=== PATIENT | female | born 1940 | race Two or more races ===

== ENCOUNTER 2022-09-28 18:45 | Inpatient (IN) | payer OTHER ==
[~2022-09-28] VITALS: Ht 160 cm; Wt 99.3 kg
[2022-09-28] MEDS ORDERED: cloNIDine HCL 0.1 MG TAB PO ONE (19:00)
[2022-09-28] MEDS ORDERED: ONDANSETRON ODT 4 MG TAB PO ONE (19:00)
[2022-09-28] MEDS ORDERED: DEXTROSE 50% SYRINGE 50 ML IV ONE (19:34)
[2022-09-28] MEDS ORDERED: DEXTROSE 10% 1,000 ML IV ONE (19:45)
[2022-09-28 19:49] LABS: Hematocrit 32.9 % (36.0-46.0); Hemoglobin 10.7 g/dL (12.2-16.2); Mean Corpuscular Hemoglobin 30.1 pg (28.0-32.0); Mean Corpuscular Hgb Conc. 32.4 g/dL (32.0-36.0); Mean Corpuscular Volume 92.9 fL (80.0-100.0); Red Blood Cells 3.54 10^6/uL (4.0-5.20); Red Cell Distribution Width 14.3 % (11.8-14.3); White Blood Cell 11.8 10^3/uL (4.4-10.8)
[2022-09-28 20:13] LABS: BUN/Creatinine Ratio 14.2; Calcium 7.8 mg/dL (8.5-10.1); Potassium 4.3 mmol/L (3.5-5.1)
[2022-09-28 20:16] LABS: Bilirubin, Total 0.3 mg/dL (0.2-1.0); Total Protein 6.4 g/dL (6.4-8.2)
[2022-09-28 20:20] LABS: Band Neutrophils % (manual) 0; Basophils % (manual) 0 (0.0-2.0); Blast Cells 0; Eosinophils % (manual) 0 (0-7); Metamyelocytes % 0; Myelocytes % 0; Promyelocytes % 0; Reactive Lymphocytes 0
[2022-09-28 20:27] LABS: INR 1.03 (0.9-1.15); Partial Thromboplastin Time 27.5 sec (24.6-33.4)
[2022-09-28 20:39] LABS: Lymphocytes % (manual) 14 (10.0-50.0); Monocytes % (manual) 4 (0-12)
[2022-09-28] MEDS ORDERED: SODIUM CHLORIDE 0.9% 1,000 ML IV SCH (21:30)
[2022-09-28] MEDS ORDERED: DEXTROSE (50%) 50ML SYRG IV ONE (21:30)
[2022-09-28] MEDS ORDERED: ACETAMINOPHEN 325 MG TAB PO PRN (21:30)
[2022-09-28] MEDS ORDERED: SOD CHL 0.45% 1,000 ML IV SCH (21:45)
[2022-09-28] MEDS ORDERED: DEXTROSE (50%) 50ML SYRG IV PRN ×2 (21:45→22:00)
[2022-09-28] MEDS ORDERED: hydrALAZINE HCL 20 MG/ML VL IV PRN (21:45)
[2022-09-28] MEDS ORDERED: PANTOPRAZOLE 40 MG/10 ML VIAL INJ IV ONE (21:45)
[2022-09-28] MEDS ORDERED: ACCU-CHEK COMFORT CURVE STRIP VI SCH (22:00)
[2022-09-28] MEDS ORDERED: InsuLIN REG 1unit/0.01ml Soln (100units/ml) SC SCH (22:00)
[2022-09-28] MEDS ORDERED: DEXTROSE 10% 1,000 ML IV SCH (22:00)
[2022-09-28] MEDS ORDERED: cefTRIAXone 1GM/50ML D5W 50 ML IV ONE (22:00)
[2022-09-28 22:29] LABS: % Iron Saturation 21.6 % (15-50); Cholesterol 118 mg/dL (< 200)
[2022-09-28 22:32] LABS: HDL Cholesterol 74 mg/dL (40-59); LDL Cholesterol 43 mg/dL (< 100); Triglycerides 73 mg/dL (< 150)
[2022-09-29] MEDS: ACCU-CHEK COMFORT CURVE STRIP VI SCH ×6 (01:23→20:19)
[2022-09-29] MEDS: InsuLIN REG 1unit/0.01ml Soln (100units/ml) SC SCH ×6 (04:00→20:51)
[2022-09-29 06:45] LABS: Basophils # (auto) 0.1 10 ^3/uL (0-0.2); Basophils % (auto) 0.6 % (0.0-2.0); Eosinophils # (auto) 0.2 10 ^3/uL (0-0.8); Hematocrit 28.2 % (36.0-46.0); Hemoglobin 9.4 g/dL (12.2-16.2); Lymphocytes # (auto) 2.2 10 ^3/uL (0.4-5.4); Lymphocytes % (auto) 24.7 % (10.0-50.0); Mean Corpuscular Hemoglobin 30.6 pg (28.0-32.0); Mean Corpuscular Hgb Conc. 33.2 g/dL (32.0-36.0); Mean Corpuscular Volume 92.1 fL (80.0-100.0); Monocytes % (auto) 10.7 % (0.0-12.0); Neutrophils # (auto) 5.6 10 ^3/uL (1.6-8.6); Red Blood Cells 3.06 10^6/uL (4.0-5.20); Red Cell Distribution Width 13.9 % (11.8-14.3)
[2022-09-29 07:00] LABS: Albumin 2.5 g/dL (3.4-5.0); BUN/Creatinine Ratio 12.7; Calcium 7.2 mg/dL (8.5-10.1); Potassium 4.5 mmol/L (3.5-5.1)
[2022-09-29 07:03] LABS: Bilirubin, Total 0.3 mg/dL (0.2-1.0)
[2022-09-29] MEDS ORDERED: cefTRIAXone 1GM/50ML D5W 50 ML IV SCH (09:00)
[2022-09-29] MEDS: ENOXAPARIN SOD 30 MG/0.3 ML SYRINGE SC SCH (09:32)
[2022-09-29] MEDS ORDERED: PANTOPRAZOLE 40 MG/10 ML VIAL INJ IV SCH (10:00)
[2022-09-29 11:00] VITALS: BP 110/62
[2022-09-29] MEDS ORDERED: ATOR20TA50 PO (12:28)
[2022-09-29] MEDS ORDERED: HYDR10TA26 PO (12:28)
[2022-09-29] MEDS ORDERED: INSUINJ2 SC ×2 (12:28)
[2022-09-29] MEDS ORDERED: GAB100C PO (12:28)
[2022-09-29] MEDS ORDERED: FUR20T PO (12:28)
[2022-09-29] MEDS ORDERED: LOSA-69 PO (12:28)
[2022-09-29 13:50] VITALS: BP 152/72
[2022-09-29] MEDS: SODIUM CHLORIDE 0.9% 1,000 ML IV SCH (14:00)
[2022-09-29 15:08] LABS: Magnesium 1.9 mg/dL (1.6-2.6); Phosphorus 4.8 mg/dL (2.5-4.90)
[2022-09-29 16:28] VITALS: BP 110/62
[2022-09-29 22:00] VITALS: BP 134/72
[2022-09-30] MEDS: ACCU-CHEK COMFORT CURVE STRIP VI SCH ×5 (00:38→18:23)
[2022-09-30] MEDS: InsuLIN REG 1unit/0.01ml Soln (100units/ml) SC SCH ×5 (04:00→18:23)
[2022-09-30] MEDS: SODIUM CHLORIDE 0.9% 1,000 ML IV SCH (04:44)
[2022-09-30 05:00] VITALS: BP 180/82
[2022-09-30] MEDS: ENOXAPARIN SOD 30 MG/0.3 ML SYRINGE SC SCH (08:16)
[2022-09-30 09:00] VITALS: BP 182/72
[2022-09-30] MEDS ORDERED: LOSARTAN POTASSIUM 50 MG TAB PO SCH (10:00)
[2022-09-30 10:46] LABS: Calcium 7.4 mg/dL (8.5-10.1); Potassium 4.6 mmol/L (3.5-5.1)
[2022-09-30 13:00] VITALS: BP 187/83
[2022-09-30 14:22] VITALS: BP 182/72
[2022-09-30 14:51] VITALS: BP 182/72
== END 2022-09-30 17:20 | disposition home health service (06) | DRG 637 ==
LOC: EDBD 18:45 → ER 18:45 → OVERFLOW 21:32 → EAST 09-29 11:51
PROVIDERS: ADMIT Nurse Practitioner Family; ATTEND Student in an Organized Health Care Education/Training Program
DX: E11.69 Type 2 diabetes mellitus with other specified complication (principal); G93.41 Metabolic encephalopathy; E46 Unspecified protein-calorie malnutrition; E87.0 Hyperosmolality and hypernatremia; E11.649 Type 2 diabetes mellitus with hypoglycemia without coma; D64.9 Anemia, unspecified; D72.829 Elevated white blood cell count, unspecified; E66.01 Morbid (severe) obesity due to excess calories; E83.51 Hypocalcemia; Z68.38 Body mass index [BMI] 38.0-38.9, adult; E11.22 Type 2 diabetes mellitus with diabetic chronic kidney disease; R29.6 Repeated falls; Z60.2 Problems related to living alone; I12.9 Hypertensive chronic kidney disease with stage 1 through stage 4 chronic kidney disease, or unspecified chronic kidney disease; N18.9 Chronic kidney disease, unspecified; Z79.4 Long term (current) use of insulin; Z63.4 Disappearance and death of family member
CPT/HCPCS: 36415; 70450; 71045; 80048; 80053; 80061; 82962; 83036; 83540; 83550; 83605; 83735; 83880; 84100; 84443; 84484; 85007; 85025; 85027; 85610; 85730; 87040; 87426; 96361; 96365; 96366; 96375; 96376; 97163; 99291; 99292; C9113; G0378; J0696; J1815; Q0162

== ENCOUNTER 2023-11-16 16:26 | Emergency (ER) | payer OTHER ==
[~2023-11-16] VITALS: Ht 154.9 cm; Wt 78.0 kg
[~2023-11-16 16:26] MED LIST: ATOR20TA50 PO; FUR20T PO; GAB100C PO; HYDR-4227 PO; INSUINJ2 SC; LOSA50TA46 PO
[2023-11-16 17:39] LABS: Basophils # (auto) 0.1 10 ^3/uL (0-0.2); Basophils % (auto) 0.7 % (0.0-2.0); Eosinophils # (auto) 0.2 10 ^3/uL (0-0.8); Eosinophils % (auto) 1.6 % (0.0-7.0); Hemoglobin 11.8 g/dL (12.2-16.2); Lymphocytes # (auto) 1.6 10 ^3/uL (0.4-5.4); Lymphocytes % (auto) 14.9 % (10.0-50.0); Mean Corpuscular Hgb Conc. 31.9 g/dL (32.0-36.0); Monocytes # (auto) 1.3 10 ^3/uL (0-1.3); Monocytes % (auto) 11.9 % (0.0-12.0); Neutrophils # (auto) 7.6 10 ^3/uL (1.6-8.6); Neutrophils % (auto) 70.9 % (37.0-80.0); Red Blood Cells 3.93 10^6/uL (4.0-5.20); Red Cell Distribution Width 13.5 % (11.8-14.3); White Blood Cell 10.8 10^3/uL (4.4-10.8)
[2023-11-16 17:57] LABS: Albumin 2.9 g/dL (3.2-4.8); Alkaline Phosphatase 106 U/L (46-116); Anion Gap 9 (5-15); Aspartate Aminotransferase 33 U/L (13-40); BUN/Creatinine Ratio 7.8 (10.0-20.0); Bilirubin, Total 0.2 mg/dL (0.2-1.0); Blood Urea Nitrogen 34 mg/dL (9-23); Carbon Dioxide 25 mmol/L (20-30); Chloride 102 mmol/L (98-107); Glucose 111 mg/dL (74-106); Potassium 3.7 mmol/L (3.5-5.1); Sodium 136 mmol/L (136-145)
[2023-11-16 18:01] LABS: Alanine Aminotransferase < 9 U/L (7-40)
[2023-11-16 18:41] LABS: Erythrocyte Sedimentation Rate 70 mm/hr (0-20)
[2023-11-16 18:52] LABS: INR 1.09 (0.9-1.15); Partial Thromboplastin Time 36.6 SEC (24.5-34.5); Prothrombin Time 11.4 sec (9.3-11.8)
[2023-11-16 19:25] VITALS: PULSE 75; RESP 15; O2SAT 95
[2023-11-16 20:22] VITALS: BP 150/76; PULSE 75; RESP 16; O2SAT 98
== END 2023-11-16 20:22 | disposition home or self-care (01) ==
LOC: EDBD 16:26 → ER 16:26
DX: S80.01XA Contusion of right knee, initial encounter (principal); I12.9 Hypertensive chronic kidney disease with stage 1 through stage 4 chronic kidney disease, or unspecified chronic kidney disease; E11.22 Type 2 diabetes mellitus with diabetic chronic kidney disease; N18.9 Chronic kidney disease, unspecified; E78.5 Hyperlipidemia, unspecified; Z90.710 Acquired absence of both cervix and uterus; Z79.4 Long term (current) use of insulin; Z79.899 Other long term (current) drug therapy; X58.XXXA Exposure to other specified factors, initial encounter; Y93.89 Activity, other specified; Y92.89 Other specified places as the place of occurrence of the external cause; Y99.8 Other external cause status
CPT/HCPCS: 36415; 73560; 80053; 83605; 85025; 85610; 85652; 85730; 86141

== ENCOUNTER 2023-12-03 11:30 | Inpatient (IN) | payer OTHER ==
[~2023-12-03] VITALS: Ht 157.5 cm; Wt 68.0 kg
[2023-12-03] VITALS (7 sets, daily range): BP systolic 62–106; BP diastolic 25–62; PULSE 63–82; RESP 10–24; TEMP 97–97.5; O2SAT 99
[2023-12-03 12:04] LABS: Eosinophils # (auto) 0 10 ^3/uL (0-0.8); Monocytes # (auto) 1.3 10 ^3/uL (0-1.3); Monocytes % (auto) 5.3 % (0.0-12.0); Red Cell Distribution Width 14.5 % (11.8-14.3)
[2023-12-03 12:06] LABS: Basophils # (auto) 0.1 10 ^3/uL (0-0.2); Basophils % (auto) 0.4 % (0.0-2.0); Hematocrit 17.9 % (36.0-46.0); Lymphocytes # (auto) 1.4 10 ^3/uL (0.4-5.4); Lymphocytes % (auto) 5.8 % (10.0-50.0); Mean Corpuscular Hemoglobin 29.4 pg (28.0-32.0); Mean Corpuscular Hgb Conc. 30.3 g/dL (32.0-36.0); Mean Corpuscular Volume 96.8 fL (80.0-100.0); Neutrophils # (auto) 21.9 10 ^3/uL (1.6-8.6); Neutrophils % (auto) 88.5 % (37.0-80.0); Nucleated Red Blood Cells % 0.1 %; Red Blood Cells 1.85 10^6/uL (4.0-5.20); White Blood Cell 24.8 10^3/uL (4.4-10.8)
[2023-12-03 12:12] LABS: Chloride 100 mmol/L (98-107); Potassium 4.9 mmol/L (3.5-5.1); Sodium 132 mmol/L (136-145)
[2023-12-03 12:13] LABS: Anion Gap 13 (5-15); Carbon Dioxide 19 mmol/L (20-30)
[2023-12-03 12:18] LABS: BUN/Creatinine Ratio 10.9 (10.0-20.0); Blood Urea Nitrogen 62 mg/dL (9-23); Glucose 122 mg/dL (74-106)
[2023-12-03 12:22] LABS: Hemoglobin 5.4 g/dL (12.2-16.2)
[2023-12-03 12:32] LABS: Calcium 5.8 mg/dL (8.7-10.4)
[2023-12-03] MEDS: SODIUM CHLORIDE 0.9% 1,000 ML IV ONE (15:12)
[2023-12-03] MEDS: NOREPINEPHRINE 8 MG/250ML KIT 250 ML IV SCH ×2 (15:12→21:04)
[2023-12-03] MEDS: NOREPINEPHRINE 8 MG/250ML KIT 250 ML IV ONE (15:12)
[2023-12-03] MEDS ORDERED: DEXTROSE (50%) 50ML SYRG IV PRN (18:45)
[2023-12-03] MEDS ORDERED: ONDANSETRON HCL 4 MG/2 ML VIAL IV PRN (18:45)
[2023-12-03] MEDS ORDERED: MORPHINE SULFATE INJ 2 MG/ml SYRG IV PRN (18:45)
[2023-12-03] MEDS ORDERED: DOCUSATE SOD 100 MG CAP PO PRN (18:45)
[2023-12-03] MEDS ORDERED: VANCOMYCIN PER PHARMACY 0 MG IV SCH (18:45)
[2023-12-03] MEDS: VASOPRESSIN 20 UNIT/ML ONE (19:36)
[2023-12-03] MEDS: VASOPRESSIN 20 UNITS in SODIUM CHL 0.9% 99 ML IV SCH (19:58)
[2023-12-03] MEDS: CEFEPIME 2GM/50ML NS 50 ML IV ONE (20:00)
[2023-12-03 20:03] LABS: Alanine Aminotransferase 13 U/L (7-40); Albumin 1.9 g/dL (3.2-4.8); Alkaline Phosphatase 148 U/L (46-116); Anion Gap 14 (5-15); Aspartate Aminotransferase 56 U/L (13-40); BUN/Creatinine Ratio 12.9 (10.0-20.0); Carbon Dioxide 19 mmol/L (20-30); Chloride 101 mmol/L (98-107); Glucose 118 mg/dL (74-106); Potassium 5.3 mmol/L (3.5-5.1); Sodium 134 mmol/L (136-145)
[2023-12-03 20:04] LABS: Bilirubin, Total 0.6 mg/dL (0.2-1.0); Blood Urea Nitrogen 72 mg/dL (9-23); Phosphorus 7.1 mg/dL (2.4-5.1); Total Protein 4.2 g/dL (5.7-8.2)
[2023-12-03 20:10] LABS: Calcium 5.8 mg/dL (8.5-10.1)
[2023-12-03] MEDS: CALCIUM GLUC 1,000mg/50ml-NS 50 ML IV ONE (20:18)
[2023-12-03 20:21] LABS: Magnesium 1.8 mg/dL (1.6-2.6)
[2023-12-03] MEDS: VANCOMYCIN 1GM/200ML 200 ML IV ONE (21:33)
[2023-12-03] MEDS: SODIUM CHLORIDE 0.9% 1,000 ML IV SCH (21:42)
[2023-12-03] MEDS: ACCU-CHEK COMFORT CURVE STRIP VI SCH (23:46)
[2023-12-03] MEDS: InsuLIN REG 1unit/0.01ml Soln (100units/ml) SC SCH (23:46)
[2023-12-04 01:05] VITALS: BP 103/41; PULSE 72; RESP 11; TEMP 97.3
[2023-12-04 01:22] VITALS: BP 94/49; PULSE 67; RESP 17; TEMP 97.3
[2023-12-04 01:37] VITALS: BP 92/45; PULSE 71; RESP 24; TEMP 97.4
[2023-12-04 03:26] VITALS: BP 100/44; PULSE 71; RESP 25; TEMP 97.4
[2023-12-04] MEDS: ACETAMINOPHEN 325 MG TAB PO ONE (03:30)
[2023-12-04] MEDS: ONDANSETRON HCL 4 MG/2 ML VIAL IV PRN (03:33)
[2023-12-04] MEDS: MORPHINE SULFATE INJ 2 MG/ml SYRG IV PRN (03:33)
[2023-12-04 05:02] LABS: Hematocrit 23.8 % (36.0-46.0); Hemoglobin 7.7 g/dL (12.2-16.2); Mean Corpuscular Hgb Conc. 32.3 g/dL (32.0-36.0); Mean Corpuscular Volume 89.8 fL (80.0-100.0); Red Blood Cells 2.65 10^6/uL (4.0-5.20); Red Cell Distribution Width 15.2 % (11.8-14.3)
[2023-12-04 05:13] LABS: INR 1.22 (0.9-1.15); Partial Thromboplastin Time 54.8 SEC (24.5-34.5); Prothrombin Time 12.6 sec (9.3-11.8)
[2023-12-04 05:17] LABS: Alanine Aminotransferase 17 U/L (7-40); Albumin 1.9 g/dL (3.2-4.8); Alkaline Phosphatase 138 U/L (46-116); Anion Gap 17 (5-15); Aspartate Aminotransferase 62 U/L (13-40); BUN/Creatinine Ratio 16.5 (10.0-20.0); Carbon Dioxide 16 mmol/L (20-30); Chloride 100 mmol/L (98-107); Glucose 109 mg/dL (74-106); Potassium 5.1 mmol/L (3.5-5.1); Sodium 133 mmol/L (136-145); Total Protein 3.9 g/dL (5.7-8.2)
[2023-12-04 05:32] LABS: Blood Urea Nitrogen 92 mg/dL (9-23); Calcium 5.6 mg/dL (8.5-10.1)
[2023-12-04 05:33] LABS: White Blood Cell 39.4 10^3/uL (4.4-10.8)
[2023-12-04 05:34] LABS: Basophils % (manual) 0 (0.0-2.0); Blast Cells 0; Eosinophils % (manual) 0 (0-7); Metamyelocytes % 0; Myelocytes % 0; Promyelocytes % 0; Reactive Lymphocytes 0
[2023-12-04] MEDS: CALCIUM GLUC 1,000mg/50ml-NS 50 ML IV ONE (06:33)
[2023-12-04 08:07] VITALS: RESP 16; O2SAT 99
[2023-12-04 08:53] LABS: Band Neutrophils % (manual) 12; Lymphocytes % (manual) 7 (10.0-50.0); Monocytes % (manual) 4 (0-12); Platelet Estimate Adequate; Tear Drop Cells FEW
[2023-12-04] MEDS ORDERED: VANCOMYCIN PER PHARMACY 0 MG IV SCH (11:30)
[2023-12-04] MEDS: VANCOMYCIN 500 MG in D5W 5% 100 ML IV ONE (14:05)
[2023-12-04] MEDS: SODIUM CHLORIDE 0.9% 1,000 ML IV SCH (14:25)
[2023-12-04] MEDS: PANTOPRAZOLE 40 MG/10 ML VIAL INJ IV ONE (14:29)
[2023-12-04] MEDS ORDERED: diphenhdrAMINE HCL 50 MG/1 ML VL IM ONE (16:15)
[2023-12-04] MEDS: CEFEPIME HCL-DEXTROSE 50 ML IV SCH (17:19)
[2023-12-04] MEDS ORDERED: AMLO1TAB22 PO (17:35)
[2023-12-04] MEDS ORDERED: PANT40TA2 PO (17:35)
[2023-12-04] MEDS ORDERED: CARV6.2551 PO (17:35)
[2023-12-04] MEDS ORDERED: SUCR1TAB PO (17:35)
[2023-12-04 20:18] VITALS: PULSE 70; RESP 20; O2SAT 95
[2023-12-05] VITALS (33 sets, daily range): BP systolic 82–132; BP diastolic 36–54; PULSE 60–79; RESP 12–21; TEMP 97.9–98.7; O2SAT 94–99
[2023-12-05 06:32] LABS: Mean Corpuscular Hemoglobin 28.7 pg (28.0-32.0); Mean Corpuscular Hgb Conc. 30.8 g/dL (32.0-36.0); Mean Corpuscular Volume 93.2 fL (80.0-100.0)
[2023-12-05 06:38] LABS: Hematocrit 20.6 % (36.0-46.0); Red Blood Cells 2.21 10^6/uL (4.0-5.20); Red Cell Distribution Width 15.9 % (11.8-14.3)
[2023-12-05 06:41] LABS: Alanine Aminotransferase 24 U/L (7-40); Albumin 1.8 g/dL (3.2-4.8); Alkaline Phosphatase 171 U/L (46-116); Aspartate Aminotransferase 82 U/L (13-40); BUN/Creatinine Ratio 16.8 (10.0-20.0); Bilirubin, Total 0.7 mg/dL (0.2-1.0); Chloride 103 mmol/L (98-107); Glucose 141 mg/dL (74-106); Potassium 4.3 mmol/L (3.5-5.1); Sodium 135 mmol/L (136-145); Total Protein 3.7 g/dL (5.7-8.2)
[2023-12-05 06:42] LABS: Hemoglobin 6.3 g/dL (12.2-16.2)
[2023-12-05 06:43] LABS: Band Neutrophils % (manual) 0; Basophils % (manual) 0 (0.0-2.0); Blast Cells 0; Eosinophils % (manual) 0 (0-7); Metamyelocytes % 0; Myelocytes % 0; Promyelocytes % 0; Reactive Lymphocytes 0
[2023-12-05 06:45] LABS: Carbon Dioxide 13 mmol/L (20-30)
[2023-12-05 06:53] LABS: Blood Urea Nitrogen 95 mg/dL (9-23)
[2023-12-05 06:54] LABS: Calcium 5.6 mg/dL (8.5-10.1)
[2023-12-05] MEDS: SODIUM CHL 0.9% 1000 ML BAG XX ONE (07:00)
[2023-12-05 07:14] LABS: Anion Gap 19 (5-15)
[2023-12-05 09:26] LABS: Lymphocytes % (manual) 5 (10.0-50.0); Monocytes % (manual) 2 (0-12); Platelet Estimate Adequate
[2023-12-05] MEDS: PANTOPRAZOLE 40 MG/10 ML VIAL INJ IV SCH (10:51)
[2023-12-05] MEDS: MEROPENEM 1GM IVPB 50 ML IV ONE (13:29)
[2023-12-05] MEDS: LIDOCAINE 1% (LOCAL ANESTH.) PF 5ml SDV ID ONE (14:58)
[2023-12-05] MEDS: LIDOCAINE 2%HCL (LOCAL ANESTH.) INJ 20ML MDV ONE (17:11)
[2023-12-05] MEDS: fentaNYL CITRATE 100 MCG/2 ML VL ONE (17:22)
[2023-12-05] MEDS: HEPARIN SODIUM (PORCINE) 5000 UNITS/ML 1ML VIAL ONE (17:23)
[2023-12-05] MEDS: MIDAZOLAM HCL 2MG/2ML 2ml VIAL (1mg/ml) ONE (17:23)
[2023-12-05] MEDS: NOREPINEPHRINE 8 MG/250ML KIT 250 ML IV ONE (18:16)
[2023-12-05] MEDS: MEROPENEM 1GM IVPB 50 ML IV SCH (22:48)
[2023-12-05] MEDS: SODIUM CHLOR 0.9% PF (SALINE LOCK) 10ML VIAL/SYR IV SCH (22:53)
[2023-12-06] VITALS (88 sets, daily range): BP systolic 90–160; BP diastolic 33–75; PULSE 60–133; RESP 10–27; TEMP 97.9–98.4; O2SAT 95–100
[2023-12-06 04:20] LABS: Hematocrit 20.8 % (36.0-46.0); Mean Corpuscular Hemoglobin 29.9 pg (28.0-32.0)
[2023-12-06 04:21] LABS: Mean Corpuscular Hgb Conc. 31.9 g/dL (32.0-36.0); Mean Corpuscular Volume 93.7 fL (80.0-100.0); Red Blood Cells 2.22 10^6/uL (4.0-5.20); Red Cell Distribution Width 15.1 % (11.8-14.3)
[2023-12-06 04:51] LABS: Chloride 99 mmol/L (98-107); Potassium 3.6 mmol/L (3.5-5.1)
[2023-12-06 04:52] LABS: Anion Gap 5 (5-15); Carbon Dioxide 16 mmol/L (20-30); Hemoglobin 6.6 g/dL (12.2-16.2); White Blood Cell 40.2 10^3/uL (4.4-10.8)
[2023-12-06 04:53] LABS: Basophils % (manual) 0 (0.0-2.0); Blast Cells 0; Eosinophils % (manual) 0 (0-7); Metamyelocytes % 0; Myelocytes % 0; Promyelocytes % 0; Reactive Lymphocytes 0
[2023-12-06 04:57] LABS: Glucose 199 mg/dL (74-106)
[2023-12-06 05:04] LABS: Sodium 120 mmol/L (136-145)
[2023-12-06 05:05] LABS: Calcium 5.2 mg/dL (8.5-10.1)
[2023-12-06 05:31] LABS: BUN/Creatinine Ratio 14.3 (10.0-20.0); Blood Urea Nitrogen 77 mg/dL (9-23)
[2023-12-06 06:12] LABS: Band Neutrophils % (manual) 6; Lymphocytes % (manual) 2 (10.0-50.0); Monocytes % (manual) 4 (0-12); Platelet Estimate Adequate
[2023-12-06 06:13] LABS: Anisocytosis Slight
[2023-12-06 06:44] LABS: Urine Bacteria FEW /hpf (None Seen); Urine Blood 1+ /uL (Negative); Urine Budding Yeast FEW /hpf (None Seen); Urine Clarity CLOUDY (Clear); Urine Color Yellow (Yellow); Urine Protein, UAD 2+ (Negative); Urine Specific Gravity 1.016 (1.001-1.035); Urine Urobilinogen Normal (Negative); Urine WBC 120 /hpf (0 - 5); Urine pH 5.5 (5.0-8.0)
[2023-12-06] MEDS: SODIUM CHL 0.9% 1000 ML BAG XX ONE (08:00)
[2023-12-06] MEDS: ALBUMIN 25% 100 ML IV PRN (08:15)
[2023-12-06 13:11] LABS: Hemoglobin 8.7 g/dL (12.2-16.2)
[2023-12-06] MEDS ORDERED: KETOROLAC TROMETH 30 MG/ML 1ML VIAL IV PRN (14:30)
[2023-12-06] MEDS: VANCOMYCIN 1GM/200ML 200 ML IV ONE (14:55)
[2023-12-06 15:10] LABS: Chloride 108 mmol/L (98-107); Potassium 3.6 mmol/L (3.5-5.1); Sodium 140 mmol/L (136-145)
[2023-12-06 15:11] LABS: Anion Gap 10 (5-15); Calcium 6.1 mg/dL (8.5-10.1); Carbon Dioxide 22 mmol/L (20-30)
[2023-12-06 15:16] LABS: Glucose 130 mg/dL (74-106)
[2023-12-06 15:17] LABS: BUN/Creatinine Ratio 13.1 (10.0-20.0); Blood Urea Nitrogen 40 mg/dL (9-23)
[2023-12-07] VITALS (11 sets, daily range): BP systolic 106–132; BP diastolic 48–64; PULSE 82–135; RESP 15–21; TEMP 98.5–99.2; O2SAT 96–98
[2023-12-07 04:08] LABS: Hematocrit 23.6 % (36.0-46.0); Hemoglobin 7.8 g/dL (12.2-16.2); Mean Corpuscular Hemoglobin 29.8 pg (28.0-32.0); Mean Corpuscular Hgb Conc. 33.1 g/dL (32.0-36.0); Mean Corpuscular Volume 90.1 fL (80.0-100.0); Red Blood Cells 2.62 10^6/uL (4.0-5.20)
[2023-12-07 04:37] LABS: White Blood Cell 32.5 10^3/uL (4.4-10.8)
[2023-12-07 04:38] LABS: Basophils % (manual) 0 (0.0-2.0); Blast Cells 0; Eosinophils % (manual) 0 (0-7); Metamyelocytes % 0; Myelocytes % 0; Promyelocytes % 0; Reactive Lymphocytes 0
[2023-12-07 04:57] LABS: Chloride 107 mmol/L (98-107); Potassium 3.8 mmol/L (3.5-5.1); Sodium 138 mmol/L (136-145)
[2023-12-07 04:58] LABS: Anion Gap 11 (5-15); Carbon Dioxide 20 mmol/L (20-30)
[2023-12-07 05:04] LABS: Blood Urea Nitrogen 46 mg/dL (9-23); Glucose 116 mg/dL (74-106)
[2023-12-07 05:12] LABS: Calcium 5.7 mg/dL (8.7-10.4)
[2023-12-07 06:32] LABS: Band Neutrophils % (manual) 5; Lymphocytes % (manual) 6 (10.0-50.0); Monocytes % (manual) 4 (0-12)
[2023-12-07 06:34] LABS: Anisocytosis Slight; Platelet Estimate Adequate
== END 2023-12-07 10:05 | disposition left against medical advice (07) | DRG 871 ==
LOC: EDBD 11:30 → EDUNIT# 11:30 → ER 11:30 → TELE 19:28 → ICU WEST 12-05 17:56 → TELE-WESTW 12-07 09:34
PROVIDERS: ADMIT Nurse Practitioner Family; ATTEND Internal Medicine Pulmonary Disease
PROC: 30233N1 Transfusion of Nonautologous Red Blood Cells into Peripheral Vein, Percutaneous Approach (ICD-10-PCS; 2023-12-03)
PROC: 30233K1 Transfusion of Nonautologous Frozen Plasma into Peripheral Vein, Percutaneous Approach (ICD-10-PCS; principal; 2023-12-04)
PROC: 02HV33Z Insertion of Infusion Device into Superior Vena Cava, Percutaneous Approach (ICD-10-PCS; 2023-12-05)
PROC: 5A1D70Z Performance of Urinary Filtration, Intermittent, Less than 6 Hours Per Day (ICD-10-PCS; 2023-12-06)
DX: A41.9 Sepsis, unspecified organism (principal); E43 Unspecified severe protein-calorie malnutrition; N18.6 End stage renal disease; R65.21 Severe sepsis with septic shock; J96.01 Acute respiratory failure with hypoxia; D62 Acute posthemorrhagic anemia; I12.0 Hypertensive chronic kidney disease with stage 5 chronic kidney disease or end stage renal disease; C41.9 Malignant neoplasm of bone and articular cartilage, unspecified; N39.0 Urinary tract infection, site not specified; E83.51 Hypocalcemia; E11.22 Type 2 diabetes mellitus with diabetic chronic kidney disease; I95.9 Hypotension, unspecified; E88.09 Other disorders of plasma-protein metabolism, not elsewhere classified; R68.0 Hypothermia, not associated with low environmental temperature; E87.5 Hyperkalemia; E78.5 Hyperlipidemia, unspecified; Z96.619 Presence of unspecified artificial shoulder joint; Z90.710 Acquired absence of both cervix and uterus; Z85.830 Personal history of malignant neoplasm of bone; Z85.831 Personal history of malignant neoplasm of soft tissue; Z83.3 Family history of diabetes mellitus; Z99.2 Dependence on renal dialysis; Z79.4 Long term (current) use of insulin; Z79.899 Other long term (current) drug therapy; Z68.27 Body mass index [BMI] 27.0-27.9, adult
CPT/HCPCS: 36415; 36569; 71045; 76937; 80048; 80053; 80202; 81001; 82962; 83605; 83735; 84100; 85007; 85014; 85018; 85025; 85027; 85610; 85730; 86850; 86900; 86901; 86920; 87040; 87077; 87081; 87086; 87186; 87205; 90935; 93005; 96365; 99152; C1894; C9113; G0378; J0692; J1642; J1815; J2185; J2250; J2405; J7060; P9047

== ENCOUNTER 2023-12-07 12:07 | Emergency (ER) | payer OTHER ==
[~2023-12-07] VITALS: Ht 167.6 cm; Wt 75.0 kg
[~2023-12-07 12:07] MED LIST changes: +AMLO1TAB22 PO; +CARV6.2551 PO; -GAB100C PO; +HYDR-2792 PO; -HYDR-4227 PO; -INSUINJ2 SC; +LOSA-534 PO; -LOSA50TA46 PO; +PANT40TA2 PO; +SUCR1TAB PO
[2023-12-07] MEDS ORDERED: CALCIUM CHLOR(10%) 100MG/ML 10ML SYRINGE IV ONE (12:08)
[2023-12-07] MEDS ORDERED: EPINEPHrine HCL 1 MG/10 ML SYRG IV ONE (12:08)
[2023-12-07 12:12] VITALS: BP 0/0; PULSE 0; RESP 0; O2SAT 0
== END 2023-12-07 12:12 ==
LOC: ER 12:07
DX: I46.9 Cardiac arrest, cause unspecified (principal); C49.21 Malignant neoplasm of connective and soft tissue of right lower limb, including hip; E78.5 Hyperlipidemia, unspecified; E11.22 Type 2 diabetes mellitus with diabetic chronic kidney disease; I12.9 Hypertensive chronic kidney disease with stage 1 through stage 4 chronic kidney disease, or unspecified chronic kidney disease; N18.9 Chronic kidney disease, unspecified
CPT/HCPCS: 31500; 92950; 93005